=== PATIENT | male | born 1990 | race Two or more races ===

== ENCOUNTER 2024-10-21 18:39 | Emergency (ER) | payer OTHER ==
[~2024-10-21] VITALS: Ht 167.6 cm; Wt 95.3 kg
[2024-10-21] MEDS ORDERED: DEXAMETHASONE SODIUM PHOSPHATE 4 MG/ML VIAL IM ONE (19:45)
[2024-10-21 20:51] LABS: COVID-19 AG NEGATIVE (NEGATIVE)
[2024-10-21 21:13] VITALS: BP 126/69; O2SAT 99
== END 2024-10-21 21:15 | disposition home or self-care (01) ==
LOC: ER 18:50
PROVIDERS: General Practice
DX: R07.89 Other chest pain (principal); Z20.822 Contact with and (suspected) exposure to COVID-19